=== PATIENT | female | born 2000 | race Caucasian/White ===

== ENCOUNTER 2023-04-18 06:32 | Emergency (ER) | payer OTHER ==
[2023-04-18 07:16] LABS: #Basophils 0.1 thou/uL (0.0-0.2); #Eosinphils 0.4 thou/uL (0.0-0.7); #Monocytes 0.5 thou/uL (0.11-0.59); #Neutrophils 3.8 thou/uL (1.40-6.50); %Lymphocytes 34.2 % (21.0-51.0); %Monocytes 6.5 % (0.0-10.0); %Neutrophils 52.7 % (42.0-75.0); Hematocrit 41.5 % (36.0-47.0); Hemoglobin 13.9 g/dL (12.0-16.0); Mean Corpuscular HGB CONC 33.5 g/dL (32.0-36.0); Mean Corpuscular Volume 92.6 fl (78.0-98.0); Mean Platelet Volume 9.8 fL (7.4-10.4); Platelet Count 321 10x3/uL (130-400); RBC Distribution Width 12.2 % (11.5-14.5); Red Blood Cell (RBC) Count 4.48 mill/uL (4.20-5.40); White Blood Cell (WBC) Count 7.3 10x3/uL (4.8-10.8)
[2023-04-18] MEDS ORDERED: Lorazepam 1 MG TAB ONE (07:35)
[2023-04-18 07:41] LABS: ALT (SGPT) 35 U/L (8-55); AST (SGOT) 26 U/L (5-34); Albumin 4.1 g/dL (3.5-5.0); Alkaline Phosphatase 41 U/L (40-110); Anion Gap 12 mmol/L (10-20); BUN (Urea Nitrogen) 8 mg/dL (7.0-18.7); Bilirubin, Total 0.7 mg/dL (0.2-1.2); Calc. Creatinine Clearance 0 mL/min (70-130); Calcium 9.3 mg/dL (7.8-10.44); Carbon Dioxide 22 mmol/L (22-29); Chloride 106 mmol/L (98-107); Estimated GFR 100; Globulin 3.5 g/dL (2.4-3.5); Glucose 105 mg/dL (70-105); Potassium 3.7 mmol/L (3.5-5.1); Protein, Total 7.6 g/dL (6.0-8.3); Sodium 136 mmol/L (136-145)
[2023-04-18 07:44] LABS: Troponin I Less than 0.010 ng/mL (< 0.028)
[2023-04-18 09:56] LABS: BHCG - Serum Negative (NEGATIVE); Pregs Control Background? CLEAR/WHITE (CLR/WHITE); Pregs Control Bar Appear? YES (CONTROL BAR)
[2023-04-18] MEDS ORDERED: Iopamidol-370 76% 500 ML MDV (1 ML CHARGE) ONE (10:09)
== END 2023-04-18 10:59 | disposition home or self-care (01) ==
LOC: ERS 06:32
DX: F41.0 Panic disorder [episodic paroxysmal anxiety] (principal)
CPT/HCPCS: 36415; 71045; 71275; 80053; 84484; 84703; 85025; 85379; 93005; 96360